=== PATIENT | female | born 1935 | race Caucasian/White ===

== ENCOUNTER 2023-02-07 10:19 | Emergency (ER) | payer MEDICARE, BC ==
[2023-02-07] MEDS ORDERED: Ketorolac 30 MG/ML SDV IM ONE (10:48)
[2023-02-07] MEDS ORDERED: Orphenadrine 60 MG/2 ML Inj IM ONE (10:50)
[2023-02-07 11:35] VITALS: BP 199/98; PULSE 90
== END 2023-02-07 11:46 | disposition home or self-care (01) ==
LOC: LB.ED 10:19
DX: M62.830 Muscle spasm of back (principal); E11.9 Type 2 diabetes mellitus without complications; Z90.710 Acquired absence of both cervix and uterus; Z79.899 Other long term (current) drug therapy; Z88.3 Allergy status to other anti-infective agents
CPT/HCPCS: 96372; 99283; J1885; J2360

== ENCOUNTER 2024-10-17 21:31 | Emergency (ER) | payer MEDICARE, BC ==
[2024-10-17 22:40] LABS: BASOPHILS ABSOLUTE AUTO 0.04 K/uL (0.02-0.10); BASOPHILS PERCENT AUTO 0.2 % (0.0-0.5); EOSINOPHILS ABSOLUTE AUTO 0.12 K/uL (0.04-0.40); EOSINOPHILS PERCENT AUTO 0.7 % (1.0-5.0); LYMPHOCYTES ABSOLUTE AUTO 1.44 K/uL (1.50-4.00); LYMPHOCYTES PERCENT AUTO 8.3 % (20.0-40.0); MEAN PLATELET VOLUME 10.6 fL (6.0-10.0); MONOCYTES ABSOLUTE AUTO 1.22 K/uL (0.20-0.80); MONOCYTES PERCENT AUTO 7.1 % (3.0-10.0); NEUTROPHILS ABSOLUTE AUTO 14.48 K/uL (2.00-7.50); NEUTROPHILS PERCENT AUTO 83.7 % (45.0-70.0); PLATELET COUNT,PLT 389 K/uL (150-500); RED BLOOD CELL COUNT 4.45 M/uL (3.80-5.80); RED CELL DISTRIBUTION WIDTH 14.0 % (11.0-16.0); WHITE BLOOD CELL COUNT,WBC 17.3 K/uL (4.0-11.0)
[2024-10-17 22:55] LABS: BLOOD UREA NITROGEN,BUN 23.0 mg/dL (8-26); CARBON DIOXIDE,CO2 27.1 mmol/L (21.0-32.0); CHLORIDE,CL 100.0 mmol/L (98-107); CREATININE 0.97 mg/dL (0.55-1.02); EST CRCL DRUG DOSING (CG) 35.38 mL/min; ESTIMATED GFR 56.0 mL/min (>60); GLUCOSE RANDOM 136.0 mg/dL (74-100); POTASSIUM,K 4.1 mmol/L (3.5-5.1); SODIUM,NA 134.0 mmol/L (136-145)
[2024-10-17 22:56] LABS: APPEARANCE,URINE CLEAR (CLEAR); GLUCOSE,URINE NEGATIVE (NEGATIVE); OCCULT BLOOD,URINE NEGATIVE (NEGATIVE)
[2024-10-17 23:01] LABS: SQUAMOUS EPITHELIAL CELLS,UR OCCASIONAL /HPF
[2024-10-17 23:17] VITALS: BP 131/72; PULSE 102
== END 2024-10-17 23:23 | disposition home or self-care (01) ==
LOC: LB.ED 21:31
DX: R55 Syncope and collapse (principal); K90.41 Non-celiac gluten sensitivity; E86.0 Dehydration; I10 Essential (primary) hypertension; E11.9 Type 2 diabetes mellitus without complications; Z88.8 Allergy status to other drugs, medicaments and biological substances; Z79.82 Long term (current) use of aspirin; Z79.899 Other long term (current) drug therapy; Z90.710 Acquired absence of both cervix and uterus
CPT/HCPCS: 36415; 70450; 80048; 81001; 84484; 85025; 93005; 99284